=== PATIENT | female | born 1970 | race Caucasian/White ===

== ENCOUNTER → 2024-03-22 11:23 | Outpatient (REF) | payer BC, SELFPAY | LOC: HWEVLT 11:23 | PROVIDERS: ATTENDING PHYSICIAN Radiology Diagnostic Radiology | DX: I83.893 Varicose veins of bilateral lower extremities with other complications (principal) | CPT/HCPCS: 93970 ==

== ENCOUNTER → 2024-05-02 09:49 | Outpatient (REF) | payer BC, SELFPAY | LOC: HWEVLT 09:49 | PROVIDERS: ATTENDING PHYSICIAN Radiology Diagnostic Radiology | DX: I83.892 Varicose veins of left lower extremity with other complications (principal) | CPT/HCPCS: 36471 ==

== ENCOUNTER 2024-08-16 15:11 | Emergency (ER) | payer BC, SELFPAY ==
[2024-08-16 15:17] VITALS: BP 141/82
[2024-08-16 15:44] LABS: % Basophils 0.7 % (0-2); % Eosinophils 9.9 % (0-6); % Immature Granulocytes 0.2 % (0-0.5); % Lymphocytes 32.5 % (20.5-51.1); % Monocytes 6.4 % (1.7-9.3); % Neutrophils 50.3 % (42.2-75.2); Absolute Eosinophils 0.6 10^3/uL (0-0.7); Absolute Monocytes 0.4 10^3/uL (0.1-0.6); Absolute Neutrophils 3.1 10^3/uL (1.4-6.5); Hematocrit 40.5 % (37.0-47.0); Hemoglobin 13.6 g/dL (12.0-16.0); Mean Corp Hgb Conc. 33.6 g/dL (33.0-37.0); Mean Corpuscular Hgb 29.8 pg (27.0-31.0); Mean Corpuscular Volume 88.8 fL (81.0-99.0); Mean Platelet Volume 10.7 fL (7.4-10.4); Nucleated Red Blood Cells % 0 %; Platelet Count 250 10^3/uL (130-400); Red Blood Cell Count 4.56 10^6/uL (4.20-5.40); Red Cell Dist. Width 12.3 % (11.5-14.5); White Blood Cell Count 6.1 10^3/uL (4.8-10.8)
[2024-08-16 15:53] LABS: ALT (SGPT) 22 U/L (0-35); AST (SGOT) 35 U/L (14-36); Albumin 4.6 g/dl (3.5-5.0); Alkaline Phosphatase 62 U/L (38-126); Blood Urea Nitrogen 17 mg/dl (7-17); Calcium 8.8 mg/dl (8.4-10.2); Carbon Dioxide 31 mmol/L (22-30); Chloride 96 mmol/L (98-107); Glucose 100 mg/dl (70-99); Sodium 136 mmol/L (135-145); Total Bilirubin 0.5 mg/dl (0.2-1.3); Total Protein 7.5 g/dl (6.3-8.2); eGFR > 60.00
[2024-08-16 16:05] LABS: Troponin I < 0.012 ng/ml
--- NOTE | 2024-08-16 18:00 | ED.GENMED ---
History of Present Illness
General
Chief Complaint: Chest Pain
Source: patient
Exam Limitations: none
Time Seen by Provider: 08/16/24 17:59
Nursing documentation reviewed up to this point in time: agreed with
History of Present Illness
History of Present Illness:
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 She reports it lasted for about 5 to
10 minutes. She had no shortness of breath she did have a sharp headache associate with this. She is currently asymptomatic. She does not have a cardiac history she does not smoke. No family history cardiac disease. No prior history of clotting
DVT. Denies any lower extremity swelling.
Review of Systems
Review of Systems
Allergies reviewed?: Yes
All Other Systems: ROS reviewed and negative except as documented in HPI and ROS
Constitutional: Reports no symptoms; Denies fever, fatigue or chills
EENT: Reports no symptoms
Respiratory: Reports no symptoms; Denies trouble breathing
Cardiac: Reports chest pain; Denies palpitations or syncope
ABD/GI: Reports no symptoms; Denies abdominal pain, nausea or vomiting
: Reports no symptoms
Musculoskeletal: Reports back pain
Skin: Reports no symptoms
Neurological: Reports no symptoms
Psychiatric: Reports no symptoms
Phy Exam
General Physical Exam
General Presentation: no apparent distress
General age: appears stated age
General Skin: warm and dry
General Habitus: normal
General Mental: alert
General Hydration: appears well hydrated
Cardiovascular Exam
Cardiovascular Exam: regular rate/rhythm, no murmur and normal peripheral pulses
Pulmonary Exam
Pulmonary Exam: lungs clear and no respiratory distress
Gastrointestinal Exam
Gastrointestinal Exam: non tender and soft
Neurological Exam
Neurological Exam: alert and oriented x3
Musculoskeletal Exam
Musculoskeletal Exam: full ROM and other ( no l/e swelling bilateral legs )
Skin Exam
Skin Exam: normal color and warm/dry
Psychiatric Exam
Psychiatric Exam: normal mood/affect
Scores
Heart Score for Chest Pain Patients
STEMI patient?: Not applicable
Course
Orders/Labs/Results
Orders:
Orders
08/16/24 15:12
Electrocardiogram (*1) Urgent
Reason for Study: Chest Pain
EKG- Treatment ONCE
08/16/24 15:13
CXR2 [CR Chest - 2 Views ] Urgent
Comment:
Reason For Exam: pain
08/16/24 15:25
Complete Blood Count/With Diff Urgent
Comprehensive Metabolic Panel Urgent
Troponin I Urgent
08/16/24 18:14
EKG- Treatment ONCE
08/16/24 18:22
DDimer [D-Dimer] Urgent
Troponin I Urgent
08/16/24 18:30
Electrocardiogram (*1) Stat
Reason for Study: Other
Other Reason for Exam: chest pain
Abnormal Lab Results
08/16/24
15:25
MPV 10.7 H fL
(7.4-10.4)
Eosinophils % 9.9 H %
(0-6)
Chloride 96 L mmol/L
(98-107)
Carbon Dioxide 31 H mmol/L
(22-30)
Glucose 100 H mg/dl
(70-99)
08/16/24 15:25
08/16/24 15:25
Vital Signs
Initial and Last Documented VS:
Initial Vital Signs
Temp Pulse Resp BP Pulse Ox
98 F 65 16 141/82 99
08/16/24 15:17 08/16/24 15:17 08/16/24 15:17 08/16/24 15:17 08/16/24 15:17
Last Documented Vital Signs
Temp Pulse Resp BP Pulse Ox
98 F 69 16 116/69 97
08/16/24 15:17 08/16/24 19:45 08/16/24 19:15 08/16/24 19:00 08/16/24 19:45
MDM/Problems Addressed
MDM/Problems Addressed:
Patient is a 54-year-old female who has no cardiac history presented for chest pain several hours ago. 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 She felt pain in her chest and back. She denies any shortness of breath. She has no
cardiac history no PE DVT risk factors no family history of cardiac history. She presents awake alert no acute distress. Vital signs stable. Patient was monitored here with 2 negative prior troponins. Initial EKG done shows nonspecific lateral
abnormality no acute concerns on repeat EKG. Patient's D-dimer was negative.
Patient is nontachycardic nontachypneic nonhypoxic stable . no cause for patient's pain during patient's workup however no concerning findings. Will DC with chest pain hotline follow-up.
*Radiology
Radiology exam reviewed: radiology read reviewed
*Pulse Oximetry
Patient hypoxic: no
*EKG
Interpreted by ED Provider?: Yes
Interpretation: abnormal
Heart Rate: 64
Rate: normal
Rhythm: sinus
Ischemia: non-specific ST changes
*Critical Care Note
Total Time (30-74mins, 75-104mins- exclusive of procedures): Not Applicable
ED Attending Note
-
Portions of this chart may have been created with voice recognition software.� Occasional wrong word or��sound alike� substitutions may have occurred due to the inherent limitations of voice recognition software.
Discharge Plan
Departure
Patient Disposition: Home (Routine Discharge)
Date of Disposition: 08/16/24
Time of Disposition: 19:54
Patient with high blood pressure during this ER visit?: Yes
Condition: Fair
Covid-19: Not Applicable
Discharge Problem:
Chest pain
Instructions: Chest Pain DCA Follow Up, BLOOD PRESSURE
Referrals:
Jose D Castellanos MD [Active] -
Joe Redmond MD [Family Provider] -
Activity Restrictions/Additional Instructions:
As discussed follow-up with cardiology as well as your family doctor. Please call your family doctor tomorrow to schedule an appointment soon as possible. If you do not hear from cardiology office within the next 2 days please give them a call.
Return if any worsening of symptoms
Interventions
Interventions:
*Risk Screen - Suicide Last Done: 08/16/24 15:17
*General Assessment Last Done: 08/16/24 18:21
*Neglect/Abuse Screening Last Done: 08/16/24 15:17
*ED COVID-19 Vaccine History Last Done: 08/16/24 18:20
*Nursing Disposition Last Done: 08/16/24 20:10
ED- Cardiac Assessment Last Done: 08/16/24 19:00
Discharge Date and Time
Discharge Date/Time: 08/16/24 20:11
Print Language: [email or web address]
[2024-08-16 18:29] VITALS: BP 119/70
[2024-08-16 18:57] LABS: D-Dimer 0.44 ug/mlFEU (0.00-0.50)
[2024-08-16 19:00] VITALS: BP 116/69
[2024-08-16 19:08] LABS: Troponin I < 0.012 ng/ml
== END 2024-08-16 20:11 | disposition home or self-care (01) ==
LOC: EMR 15:11
PROVIDERS: Emergency Medicine; Nurse Practitioner; EMERGENCY PHYSICIAN Student in an Organized Health Care Education/Training Program; FAMILY PHYSICIAN Family Medicine
DX: R07.9 Chest pain, unspecified (principal)
CPT/HCPCS: 99285; 71046; 80053; 84484; 85025; 85379; 93005